=== PATIENT | male | born 1995 | race Caucasian/White ===

== ENCOUNTER 2017-08-18 18:02 | Emergency (ER) | payer OTHER ==
--- NOTE | 2017-08-18 19:06 | RAD ---
INDICATION: Lifting injury to left shoulder with patient reported dislocation COMPARISON: None. TECHNIQUE: 4 views of the left shoulder were obtained. FINDINGS: The adequately corticated bones are in normal alignment. Joint spaces appear maintained. No fracture, dislocation or focal bony abnormality is seen. IMPRESSION: Normal radiograph of the left shoulder. If the patient's symptoms persist, follow-up imaging is recommended.
--- NOTE | 2017-08-18 19:18 | UC ---
Shoulder Pain HPI - HPI Summary HPI Summary: 21 yo male with the onset of severe left shoulder pain when he pushed open a dumpster states pain was 10/10 and initially he was unable to move his shoulder on arrival here he moved it and his pain decreased markedly - History of Current Complaint Chief Complaint: UCUpperExtremity Stated Complaint: LEFT SHOULDER INJURY Time Seen by Provider: 08/18/17 18:37 Hx Obtained From: Patient Onset/Duration: Sudden Onset, Lasting Minutes Timing: Constant Severity Initially: Severe Severity Currently: Mild Pain Intensity: 3 Pain Scale Used: 0-10 Numeric Character: Sharp Aggravating Factor(s): Nothing Alleviating Factor(s): Rest, Other - movement improved it Related History: Dominant Hand Right - Allergies/Home Medications Allergies/Adverse Reactions: Allergies Allergy/AdvReac Type Severity Reaction Status Date / Time No Known Allergies Allergy Verified 08/18/17 18:06 Home Medications: Home Medications Dextroamphetamine/Amphetamine [Adderall Xr 20 mg Capsule] 20 mg PO DAILY [History Confirmed 08/18/17] PMH/Surg Hx/FS Hx/Imm Hx Previously Healthy: Yes - Surgical History Surgical History: Yes Surgery Procedure, Year, and Place: right hand - Family History Known Family History: Positive: Hypertension - Social History Alcohol Use: Occasionally Substance Use Type: None Smoking Status (MU): Never Smoked Tobacco Review of Systems Constitutional: Negative Skin: Negative Eyes: Negative ENT: Negative Respiratory: Negative Cardiovascular: Negative Gastrointestinal: Negative Genitourinary: Negative Motor: Negative Neurovascular: Negative Musculoskeletal: Arthralgia Neurological: Negative Psychological: Negative Is Patient Immunocompromised?: No All Other Systems Reviewed And Are Negative: Yes Physical Exam Triage Information Reviewed: Yes Appearance: Well-Appearing, No Pain Distress, Well-Nourished Vital Signs: Initial Vital Signs Temp 97.6 F 08/18/17 18:04 Pulse 90 08/18/17 18:04 Resp 18 08/18/17 18:04 BP 126/86 08/18/17 18:04 Pulse Ox 100 08/18/17 18:04 Vital Signs Reviewed: Yes ENT: Positive: Hearing grossly normal. Negative: Nasal drainage, TMs normal, Trismus, Muffled voice, Hoarse voice Neck: Positive: Supple, Nontender Respiratory: Positive: Lungs clear, Normal breath sounds, No respiratory distress, No accessory muscle use Cardiovascular: Positive: RRR, No Murmur Musculoskeletal: Positive: ROM Intact, No Edema Neurological: Positive: Alert Psychological Exam: Normal Skin Exam: Normal Shoulder Course/Dx - Differential Dx/Diagnosis Provider Diagnoses: left shoulder injury. ? subluxation vs torn labrum vs other Discharge - Sign-Out/Discharge Documenting (check all that apply): Discharge/Admit/Transfer - Discharge Plan Condition: Stable Disposition: HOME Patient Education Materials: Shoulder Pain (ED) Additional Instructions: rest ice advil or aleve I suggest you follow up with an orthopedist next week take copies of XR - Billing Disposition and Condition Condition: STABLE Disposition: HOME
== END 2017-08-18 19:15 | disposition home or self-care (01) ==
LOC: UCCORT 18:02
DX: S49.92XA Unspecified injury of left shoulder and upper arm, initial encounter (principal); X50.9XXA Other and unspecified overexertion or strenuous movements or postures, initial encounter; Y92.9 Unspecified place or not applicable
CPT/HCPCS: 99202; G0463